=== PATIENT | female | born 1980 | race Two or more races ===

== ENCOUNTER 2022-08-26 19:40 | Emergency (ER) | payer OTHER ==
[~2022-08-26] VITALS: Ht 165.1 cm; Wt 57.6 kg
== END 2022-08-26 22:47 | disposition home or self-care (01) ==
LOC: ER 19:40
DX: T78.1XXA Other adverse food reactions, not elsewhere classified, initial encounter (principal); T78.49XA Other allergy, initial encounter; X58.XXXA Exposure to other specified factors, initial encounter; Z91.013 Allergy to seafood